=== PATIENT | female | born 1950 | race Caucasian/White ===

== ENCOUNTER 2017-02-15 18:59 | Emergency (ER) | payer MEDICARE ==
[~2017-02-15] VITALS: Ht 167.6 cm; Wt 69.9 kg
[~2017-02-15 18:59] MED LIST: LISINOPRIL 5MG T5 MG NG; NITROGLYCERIN0.4 M1 SL
--- NOTE | 2017-02-15 19:32 | Urgent Treatment Center Report ---
History of Present Issue Date/Time Seen by Provider 02/15/171923 Visit Reason Pt arrived:Walked Presenting Problem:PT C/O SWELLING AND PAIN OF THE LEFT FOOT. PT DENIES ANY KNOWN INJURY Location if Accident: Onset of symptoms date/time:/ or onset unknown for:MEDICAL HX UNKNOWN Have you (or family members/close friends) recently traveled outside the [place]? N If Yes, where/when: Have you had exposure to infectious disease within the past month? TB? Other? Specify: Patient states that she notice that she was having pain, redness and swelling in the top of her left foot area state that foot hurts when she stands on it. She didn't remember injuring the foot however states that she is always bumping things and not sure if she may or may not have hit the foot against something or that she may have an infection in there ALLERGIES Coded Allergies: No Known Allergies (07/17/16) Home Medications Active Scripts Nitroglycerin 0.4 MG SL [id number] PRN CHEST PAIN #25 TAB Ref 1 Prov: 04/24/15 Reported Medications LISINOPRIL (Lisinopril) 5 MG NG DAILY History Medical History General CAD? No Angina: Yes [place]: No Hypertension? Yes Hyperlipidemia? No CHF? No DVT? No PE? No COPD? No Asthma? No Anemia? No GERD? No Gastric ulcers? No GI Bleed? No Hernia? No Thyroid Problems? No Hypothyroidism? No CVA? No Seizures? No Diabetes? No UTI? No Stones? No BPH? No GB Disease: Yes Nephritic Syndrome? No Asplenia? No Hepatitis? No Sickle Cell Disease? No Arthritis? No Migraines? No Cataracts? No Glaucoma? No MRSA? No TB? No Anxiety? No Depression? No Cancer? No Site: N More? No Immunization HX DT/Tetanus > 10 Years Ago Flu Refused Pneumonia Refuses Surgical Hx Previous Surgery?Y Cholecystectomy R KNEE Family History Family HX Diabetes No CAD Yes Hypertension Yes Hyperlipidemia No Cancer Yes TB No Social History Smoking Hx Smoker: Never Smoker Tobacco: No Alcohol Alcohol: No Review of Systems All Other Systems Reviewed and Negative Comment pain, redness and swelling to the top of the foot Physical Exam Vital Signs Vital Signs Date Time Temp Pulse Resp B/P Pulse O2 O2 Flow FiO2 Ox Delivery Rate 02/15 2003 20 02/15 191 93 18 163/80 100 02/15 1911 98.2 93 18 163/80 100 General Appearance normal appearance, WD/WN, no apparent distress, mild distress Respiratory Status Yes: trachea midline, chest symmetrical, non tender chest. No: respiratory distress. 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 slight swelling, no discoloration, no redness/streaks, no change in temperature Medical Decision Making LABS/Meds/Orders Pt receiving controlled substance in ED? No Results/Orders Current Medication Orders Sig/Ashley Start time Last Medication Dose Route Stop Time Status Admin Ketorolac 60 MG ONCE ONE 02/16 2000 DC 02/15 Tromethamine IM 02/15 Methylprednisolone 125 MG ONCE ONE 02/16 2000 DC Sodium Succinate IM 02/15 2001 Ketorolac 0 .STK-MED ONE 02/15 1959 DC Tromethamine .ROUTE Orders Procedure Date/time Status FOOT-LT-3 VIEWS 02/15 1931 Active Progress [facility] Progress Notes Date 02/15/17 Time 2012 Comment Patient was ordered solu medrol 125mg for possible reaction to bug bite patient refused to take medication states afraid to take it states that she would follow up with [facility] in the morning if no improvement patient given risk associated with not taking medication in an allergic reaction, still refused Departure Departure Time of Disposition 2014 Disposition DC Home or Self Care(routine) Clinical Impression Primary Impression: Foot pain Qualifiers: Laterality: left Qualified Code: M79.672 - Pain in left foot Condition STABLE Referrals Dusty Oro MD (Family): [facility] Call for appointment if no improvement in symptoms Patient Instructions DI for Foot Pain, DI for Insect Bites and Stings, DI for Spider Bites Additional Instructions Keep area clean and dry Watch for signs of infection or worsening of symptoms Return to [facility] if needed Follow up with family doctor first thing in the morning if no improvement in symptoms Discharge Counseling Counseled pt/family regarding diagnosis at 2016
--- NOTE | 2017-02-15 19:32 | Urgent Treatment Center Report ---
History of Present Issue Date/Time Seen by Provider 02/15/171923 Visit Reason Pt arrived:Walked Presenting Problem:PT C/O SWELLING AND PAIN OF THE LEFT FOOT. PT DENIES ANY KNOWN INJURY Location if Accident: Onset of symptoms date/time:/ or onset unknown for:MEDICAL HX UNKNOWN Have you (or family members/close friends) recently traveled outside the [place]? N If Yes, where/when: Have you had exposure to infectious disease within the past month? TB? Other? Specify: Patient states that she notice that she was having pain, redness and swelling in the top of her left foot area state that foot hurts when she stands on it. She didn't remember injuring the foot however states that she is always bumping things and not sure if she may or may not have hit the foot against something or that she may have an infection in there ALLERGIES Coded Allergies: No Known Allergies (07/17/16) Home Medications Active Scripts Nitroglycerin 0.4 MG SL [id number] PRN CHEST PAIN #25 TAB Ref 1 Prov: 04/24/15 Reported Medications LISINOPRIL (Lisinopril) 5 MG NG DAILY History Medical History General CAD? No Angina: Yes [place]: No Hypertension? Yes Hyperlipidemia? No CHF? No DVT? No PE? No COPD? No Asthma? No Anemia? No GERD? No Gastric ulcers? No GI Bleed? No Hernia? No Thyroid Problems? No Hypothyroidism? No CVA? No Seizures? No Diabetes? No UTI? No Stones? No BPH? No GB Disease: Yes Nephritic Syndrome? No Asplenia? No Hepatitis? No Sickle Cell Disease? No Arthritis? No Migraines? No Cataracts? No Glaucoma? No MRSA? No TB? No Anxiety? No Depression? No Cancer? No Site: N More? No Immunization HX DT/Tetanus > 10 Years Ago Flu Refused Pneumonia Refuses Surgical Hx Previous Surgery?Y Cholecystectomy R KNEE Family History Family HX Diabetes No CAD Yes Hypertension Yes Hyperlipidemia No Cancer Yes TB No Social History Smoking Hx Smoker: Never Smoker Tobacco: No Alcohol Alcohol: No Review of Systems All Other Systems Reviewed and Negative Comment pain, redness and swelling to the top of the foot Physical Exam Vital Signs Vital Signs Date Time Temp Pulse Resp B/P Pulse O2 O2 Flow FiO2 Ox Delivery Rate 02/15 2003 20 02/15 191 93 18 163/80 100 02/15 1911 98.2 93 18 163/80 100 General Appearance normal appearance, WD/WN, no apparent distress, mild distress Respiratory Status Yes: trachea midline, chest symmetrical, non tender chest. No: respiratory distress. 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 slight swelling, no discoloration, no redness/streaks, no change in temperature Medical Decision Making LABS/Meds/Orders Pt receiving controlled substance in ED? No Results/Orders Current Medication Orders Sig/Ashley Start time Last Medication Dose Route Stop Time Status Admin Ketorolac 60 MG ONCE ONE 02/16 2000 DC 02/15 Tromethamine IM 02/15 Methylprednisolone 125 MG ONCE ONE 02/16 2000 DC Sodium Succinate IM 02/15 2001 Ketorolac 0 .STK-MED ONE 02/15 1959 DC Tromethamine .ROUTE Orders Procedure Date/time Status FOOT-LT-3 VIEWS 02/15 1931 Active Progress [facility] Progress Notes Date 02/15/17 Time 2012 Comment Patient was ordered solu medrol 125mg for possible reaction to bug bite patient refused to take medication states afraid to take it states that she would follow up with [facility] in the morning if no improvement patient given risk associated with not taking medication in an allergic reaction, still refused Departure Departure Time of Disposition 2014 Disposition DC Home or Self Care(routine) Clinical Impression Primary Impression: Foot pain Qualifiers: Laterality: left Qualified Code: M79.672 - Pain in left foot Condition STABLE Referrals Dusty Oro MD (Family): [facility] Call for appointment if no improvement in symptoms Patient Instructions DI for Foot Pain, DI for Insect Bites and Stings, DI for Spider Bites Additional Instructions Keep area clean and dry Watch for signs of infection or worsening of symptoms Return to [facility] if needed Follow up with family doctor first thing in the morning if no improvement in symptoms Discharge Counseling Counseled pt/family regarding diagnosis at 2016
[2017-02-15 20:18] VITALS: BP 163/80
--- NOTE | 2017-02-16 08:26 | RADIOLOGY REPORT PS360 ---
FOOT-LT-3 VIEWS HISTORY: foot pain and swelling ORDERING PHYSICIAN: LUKAS FOURNIER APRN PATIENT AGE: 66 years COMPARISON: None FINDINGS: No fracture or dislocation. No lytic or blastic change. There is normal mineralization.. The joint spaces are well-preserved. No significant degenerative/arthritic changes. No erosive changes evident. IMPRESSION: Negative left foot, no acute finding
== END 2017-02-15 20:19 | disposition home or self-care (01) ==
LOC: UTC 18:59
DX: M79.672 Pain in left foot (principal); I10 Essential (primary) hypertension

== ENCOUNTER 2017-08-29 10:15 | Emergency (ER) | payer MEDICARE ==
[~2017-08-29] VITALS: Ht 167.6 cm; Wt 68.0 kg
[2017-08-29] MEDS ORDERED: SYNTHROID0.137 MG PO (10:31)
--- NOTE | 2017-08-29 10:50 | Urgent Treatment Center Report ---
History of Present Issue Date/Time Seen by Provider 08/29/17 1040 Visit Reason Pt arrived:Walked Presenting Problem:PT STATES SHE WAS WORKING IN THE GARDEN OVER THE WEEKEND AND NOW HER LEFT EAR IS ITCHING AND BURNING Location if Accident: Onset of symptoms date/time:/ or onset unknown for:MEDICAL HX UNKNOWN Have you (or family members/close friends) recently traveled outside the [place]? N If Yes, where/when: Have you had exposure to infectious disease within the past month? TB? Other? Specify: c/o left ear pain. States she was working in the garden 3-4 days ago and within 30 minutes, her left ear started itching. Doesn't think anything got in it but not sure. She has been itching it. "I wanted to put a toothbrush in it and scratch it is how bad it itched". However now "somewhat" painful and noticed blood when using a qtip. hasn't taken or tried anything for symptoms other than itching. Source patient Exam Limitations no limitations ALLERGIES Coded Allergies: No Known Allergies (07/17/16) Home Medications Active Scripts Nitroglycerin 0.4 MG SL [id number] PRN CHEST PAIN #25 TAB Ref 1 Prov: 04/24/15 Reported Medications LISINOPRIL (Lisinopril) 5 MG NG DAILY LEVOTHYROXINE SOD (Synthroid) 0.137 MG PO DAILY History Medical History General CAD? No Angina: Yes [place]: No Hypertension? Yes Hyperlipidemia? No CHF? No DVT? No PE? No COPD? No Asthma? No Anemia? No GERD? No Gastric ulcers? No GI Bleed? No Hernia? No Thyroid Problems? No Hypothyroidism? No CVA? No Seizures? No Diabetes? No UTI? No Stones? No BPH? No GB Disease: Yes Nephritic Syndrome? No Asplenia? No Hepatitis? No Sickle Cell Disease? No Arthritis? No Migraines? No Cataracts? No Glaucoma? No MRSA? No TB? No Anxiety? No Depression? No Cancer? No Site: N More? No Immunization HX DT/Tetanus > 10 Years Ago Flu Refused Pneumonia Refuses Surgical Hx Previous Surgery?Y Cholecystectomy R KNEE Family History Family HX Diabetes No CAD Yes Hypertension Yes Hyperlipidemia No Cancer Yes TB No Social History Smoking Hx Smoker: Current Every Day Smoker Tobacco: No Alcohol Alcohol: No Review of Systems All Other Systems Reviewed and Negative Constitutional denies fever, denies malaise Eyes denies drainage, denies pain, denies other (itching) ENT see HPI. denies: ear discharge, nose discharge, nose congestion. Respiratory denies cough Skin denies lesions, denies rash Psychiatric/Neurological denies headache, denies other (dizziness) Physical Exam Vital Signs Vital Signs Date Time Temp Pulse Resp B/P Pulse O2 O2 Flow FiO2 Ox Delivery Rate 08/29 1058 98.6 87 20 158/80 97 08/29 1029 98.6 87 20 158/80 97 General Appearance normal appearance, no apparent distress Ear, Nose, Throat small superficial abrasion left inferior ear canal, minimal dried sanguineous drainage, no swelling or erythema, mild tenderness; EAC and TM otherwise unremarkable Neck non-tender, supple Respiratory Status No: respiratory distress. Cardiovascular no peripheral edema Neurologic alert, oriented x 3 Mental status normal mood/affect Skin normal color, warm/dry Medical Decision Making LABS/Meds/Orders Pt receiving controlled substance in ED? No Departure Departure Time of Disposition 1049 Disposition DC Home or Self Care(routine) Clinical Impression Primary Impression: Abrasion of left ear, initial encounter Condition STABLE Referrals Shorty SALTER,Dusty (Family) Immediately for new or worsening symptoms, no noticeable improvement in 72 hours. Patient Instructions How to Use Ear Drops Additional Instructions Don't place anything in ear Keep ear dry Use drops as ordered Follow up if no improvement Discharge Counseling Counseled pt/family regarding diagnosis, medications/RX, home care, follow up needs Prescriptions Current Visit Scripts NEOMYCIN/POLYMYXIN B SULF/HC (Rasrfggn-Wouukcuix-Jl Ear Susp) 4 DROP OT TID-QID #1 BOTTLE at 1102
[2017-08-29] MEDS ORDERED: NEOMYCIN/POLY B10 M1 OT (10:57)
[2017-08-29 10:58] VITALS: BP 158/80
== END 2017-08-29 10:59 | disposition home or self-care (01) ==
LOC: UTC 10:15
DX: S00.412A Abrasion of left ear, initial encounter (principal); I10 Essential (primary) hypertension